=== PATIENT | female | born 1945 | race Asian ===

== ENCOUNTER 2018-10-16 05:59 | Day surgery (SDC) | payer BC ==
[2018-10-16] MEDS ORDERED: MIDAZOLAM 1 MG/ML 2 ML INJ (08:08)
[2018-10-16] MEDS ORDERED: FENTAnyl 50 MCG/ML VIAL (08:09)
== END 2018-10-16 14:30 | disposition home or self-care (01) ==
LOC: GIL 05:59
DX: K21.9 Gastro-esophageal reflux disease without esophagitis (principal); K44.9 Diaphragmatic hernia without obstruction or gangrene; K29.60 Other gastritis without bleeding; I10 Essential (primary) hypertension; E11.9 Type 2 diabetes mellitus without complications; E78.5 Hyperlipidemia, unspecified; Z79.84 Long term (current) use of oral hypoglycemic drugs
CPT/HCPCS: 43239; 82962; 88305; 88312